=== PATIENT | male | born 1965 | race Caucasian/White ===

== ENCOUNTER 2018-08-24 02:58 | Emergency (ER) | payer OTHER ==
[~2018-08-24] VITALS: Ht 182.9 cm; Wt 122.7 kg
[~2018-08-24 02:58] MED LIST: METF-849
[2018-08-24] MEDS ORDERED: morphine 4 MG/ML VIAL IV STA ×2 (03:02→03:32)
[2018-08-24] MEDS ORDERED: ONDANSETRON 4 MG INJ IV STA (03:02)
[2018-08-24] MEDS ORDERED: SOD CHLORIDE 0.9% 1,000 ML IV STA (03:02)
[2018-08-24 03:08] VITALS: Ht 182.9 cm; Wt 122.7 kg
[2018-08-24] MEDS ORDERED: FAMOTIDINE 20 MG INJ IV STA (03:32)
--- NOTE | 2018-08-24 03:44 | ERD ---
ER Documentation Chief Complaint Chief Complaint EPIGASTRIC PAIN WITH NAUSEA AND VOMITING HPI 52-year-old gentleman who presents to the emergency room with sudden onset epigastric abdominal pain with associated nonbloody nonbilious emesis. Prior history of appendectomy. The patient states that he had some food later in the evening. He woke up with abdominal pain he describes as 5 out of 10. Multiple episodes of nonbloody nonbilious emesis. No chest pain or pressure noted. ROS All systems reviewed and are negative except as per history of present illness. Medications Home Meds Active Scripts Dicyclomine HCl (Dicyclomine HCl) 10 Mg Capsule, 10 MG PO TID PRN for ABDOMINAL CRAMPING, #20 CAP Prov:SOLANGE OSPINA MD 08/24/18 Ondansetron (Ondansetron Odt) 4 Mg Tab.rapdis, 4 MG PO Q6H PRN for NAUSEA AND/OR VOMITING, #20 TAB Prov:SOLANGE OSIPNA MD 08/24/18 Reported Medications Metformin* (Glucophage*) 500 Mg Tab 05/12/10 Allergies Allergies: Coded Allergies: No Known Drug Allergy (Verified Allergy, Mild, 05/12/10) PMhx/Soc History of Surgery: Yes (APPY) Anesthesia Reaction: No Hx Neurological Disorder: No Hx Respiratory Disorders: No Hx Cardiac Disorders: Yes (HTN) Hx Psychiatric Problems: No Hx Miscellaneous Medical Probl: Yes (DM TYPE II) Hx Alcohol Use: Yes (occassional) Hx Substance Use: No Hx Tobacco Use: Yes Smoking Status: Current every day smoker FmHx Family History: No diabetes Physical Exam Vitals Vital Signs Date Temp Pulse Resp B/P (MAP) Pulse Ox O2 O2 Flow FiO2 Time Delivery Rate 08/24/18 98.5 90 22 143/89 96 03:08 (107) Physical Exam General: Actively vomiting Head: Normocephalic, atraumatic. Eyes: Pupils equally reactive, EOM intact ENT: Moist mucous membranes Neck: Supple, no lymphadenopathy Respiratory: Lungs clear bilaterally, no distress Cardiovascular: RRR, no murmurs, rubs, or gallops Abdominal: Soft, non-tender, non-distended, no peritoneal signs : Deferred MSK: No edema, no unilateral swelling, 5/5 strength Neurologic: Alert and oriented, moving all extremities, normal speech, no focal weakness, no cerebellar signs Skin: No rash Psych: Normal mood Result Diagram: 08/24/18 0330 08/24/18 0330 Results 24 hrs Laboratory Tests Test 08/24/18 03:30 White Blood Count 10.3 10^3/ul Red Blood Count 5.42 10^6/ul Hemoglobin 15.5 g/dl Hematocrit 44.7 % Mean Corpuscular Volume 82.5 fl Mean Corpuscular Hemoglobin 28.6 pg Mean Corpuscular Hemoglobin Concent 34.7 g/dl Red Cell Distribution Width 12.7 % Platelet Count 188 10^3/UL Mean Platelet Volume 11.2 fl Immature Granulocytes % 0.400 % Neutrophils % 70.9 % Lymphocytes % 19.7 % Monocytes % 6.9 % Eosinophils % 1.7 % Basophils % 0.4 % Nucleated Red Blood Cells % 0.0 /100WBC Immature Granulocytes # 0.040 10^3/ul Neutrophils # 7.3 10^3/ul Lymphocytes # 2.0 10^3/ul Monocytes # 0.7 10^3/ul Eosinophils # 0.2 10^3/ul Basophils # 0.0 10^3/ul Nucleated Red Blood Cells # 0.0 10^3/ul Sodium Level 141 mmol/L Potassium Level 4.1 mmol/L Chloride Level 105 mmol/L Carbon Dioxide Level 24 mmol/L Anion Gap 12 Blood Urea Nitrogen 22 mg/dl Creatinine 0.72 mg/dl Est Glomerular Filtrat Rate mL/min > 60 mL/min Glucose Level 280 mg/dl Calcium Level 9.7 mg/dl Total Bilirubin 0.2 mg/dl Direct Bilirubin 0.00 mg/dl Indirect Bilirubin 0.2 mg/dl Aspartate Amino Transf (AST/SGOT) 22 IU/L Alanine Aminotransferase (ALT/SGPT) 17 IU/L Alkaline Phosphatase 80 IU/L Troponin I < 0.012 ng/ml Total Protein 7.8 g/dl Albumin 4.5 g/dl Globulin 3.30 g/dl Albumin/Globulin Ratio 1.36 Lipase 167 U/L Current Medications Medications Dose Sig/Radha Start Time Status Last (Trade) Ordered Route PRN Stop Time Admin Dose Reason Admin Sodium 1,000 ml @ Q1H STAT 08/24/18 DC 08/24/18 Chloride 1,000 mls/hr IV 03:02 03:36 08/24/18 04:01 Morphine 4 mg ONCE STAT 08/24/18 DC 08/24/18 Sulfate IV 03:02 03:36 (morphine) 08/24/18 03:03 Ondansetron 4 mg ONCE STAT 08/24/18 DC 08/24/18 HCl (Zofran IV 03:02 03:36 Inj) 08/24/18 03:03 Morphine 4 mg ONCE STAT 08/24/18 DC 08/24/18 Sulfate IV 03:32 03:41 (morphine) 08/24/18 03:33 Famotidine 20 mg ONCE STAT 08/24/18 DC 08/24/18 (Pepcid Iv) IV 03:32 03:41 08/24/18 03:33 Procedures/MDM EKG, MONITORS, & DIAGNOSTIC IMAGING: EKG: I reviewed and interpreted a 12-lead EKG. Rhythm: Normal sinus rhythm ST Changes: No contiguous ST segment elevations T waves: No contiguous T wave inversions Impression: [No evidence of acute cardiac ischemia] CT abdomen and pelvis IMPRESSION: 1. Trace bilateral pleural effusions and small pericardial effusion. Mild heterogeneous air space opacity in the lung bases compatible with atelectasis or trace edema. 2. Hepatosplenomegaly. Mild fatty infiltration of the liver. 3. No additional acute process in the imaged abdomen or pelvis. RPTAT: BB Ultrasound gallbladder IMPRESSION: 1. Small amount of layering sludge within the gallbladder. No wall thickening or pericholecystic fluid to indicate acute inflammation. 2. Enlarged fatty infiltrated liver. RPTAT: [facility] LAB INTERPRETATION: * CBC shows no evidence of infection * chem profile shows hyperglycemia without diabetic ketoacidosis but no evidence of hepatobiliary obstruction MEDICAL DECISION MAKING: The patient presents with sudden onset nausea vomiting and abdominal pain. He has prior abdominal surgical history. Differential is broad and includes bowel obstruction, viral process, gastritis, hepatobiliary process. Less concerned for acute coronary syndrome. No chest pressure or exertional symptoms. However, EKG and troponin seems reasonable. ER COURSE: * The patient was given nausea medication. * Laboratory testing is reassuring. Diagnostic imaging is nonspecific and shows no acute process. Patient was informed of slightly abnormal findings on CT that can be followed up on an outpatient basis. * At this point the patient is feeling much better and he would like to go home. Return precautions were discussed and understood. CONSULTATION: [None] DISPOSITION PLAN: The patient does not have an identifiable emergent medical condition that warrants inpatient hospitalization at this time. The patient is deemed safe for discharge with outpatient follow-up. We discussed follow up with the patient's primary care doctor within 24 to 48 hours as needed. We also discussed return to the emergency room for worsening symptoms or worsening condition. Outpatient referral: [None required] Discharge Medications: Bentyl and Zofran Departure Diagnosis: Primary Impression: Epigastric abdominal pain Additional Impression: Nausea and vomiting Vomiting type: unspecified Vomiting Intractability: non-intractable Qualified Codes: R11.2 - Nausea with vomiting, unspecified Condition: Stable SOLANGE OSPINA MD Aug 24, 2018 03:44
[2018-08-24] MEDS ORDERED: ONDA4TAB14 PO (05:28)
[2018-08-24] MEDS ORDERED: DICY10CA40 PO (05:28)
[2018-08-24 05:51] VITALS: BP 134/82; PULSE 89; RESP 22
== END 2018-08-24 06:07 | disposition home or self-care (01) ==
LOC: E/R 02:58
DX: R10.13 Epigastric pain (principal); I10 Essential (primary) hypertension; R11.2 Nausea with vomiting, unspecified; E11.9 Type 2 diabetes mellitus without complications; F17.210 Nicotine dependence, cigarettes, uncomplicated; Z79.84 Long term (current) use of oral hypoglycemic drugs
CPT/HCPCS: 36415; 74176; 76705; 80053; 83690; 84484; 85025; 93005; 96374; 96375; J2270; J2405; J7030; Z7502; Z7610